=== PATIENT | male | born 1985 | race Caucasian/White ===

== ENCOUNTER 2019-11-22 12:59 | Emergency (ER) | payer OTHER ==
[~2019-11-22] VITALS: Ht 180.3 cm; Wt 136.1 kg
== END 2019-11-22 15:53 | disposition home or self-care (01) ==
LOC: ER 12:59
DX: M54.2 Cervicalgia (principal)

== ENCOUNTER 2020-05-29 09:20 | Emergency (ER) | payer OTHER ==
[~2020-05-29] VITALS: Ht 177.8 cm; Wt 141.5 kg
[2020-05-29] MEDS ORDERED: DAFLONEX-XL 11300 MG PO (09:41)
[2020-05-29] MEDS ORDERED: BENADRYL25 MG PO (15:30)
[2020-05-29] MEDS ORDERED: ZYRTEC10 M3 PO (15:30)
== END 2020-05-29 16:23 | disposition home or self-care (01) ==
LOC: ER 09:20
DX: R60.0 Localized edema (principal); Z03.818 Encounter for observation for suspected exposure to other biological agents ruled out

== ENCOUNTER 2021-07-04 09:27 | Emergency (ER) | payer OTHER ==
[~2021-07-04] VITALS: Ht 177.8 cm; Wt 148.8 kg
[~2021-07-04 09:27] MED LIST: BENADRYL25 MG PO; DAFLONEX-XL 11300 MG PO; ZYRTEC10 M3 PO
[2021-07-04] MEDS ORDERED: DOLOBID500 MG (09:48)
[2021-07-04] MEDS ORDERED: STONEX (09:49)
[2021-07-04] MEDS ORDERED: KETO10TA2 PO (15:09)
[2021-07-04] MEDS ORDERED: TAMS0.4C PO (15:09)
== END 2021-07-04 15:19 | disposition home or self-care (01) ==
LOC: ER 09:27
DX: R10.11 Right upper quadrant pain (principal); R10.31 Right lower quadrant pain